=== PATIENT | male | born 1975 | race Caucasian/White ===

== ENCOUNTER → 2022-02-18 | Outpatient (CLI) | payer BC ==
--- NOTE | 2022-02-19 10:13 | US ---
EXAMINATION TYPE: US thyroid st tissue head/neck DATE OF EXAM: 02/18/2022 COMPARISON: NONE CLINICAL HISTORY: E03.9 HYPOTHYROIDISM, UNSPECIFIED. Abnormal lab work. GLAND SIZE: Right Lobe: 2.4 x 0.9 x 0.7 cm Overall Parenchyma: Homogeneous Left Lobe: 2.4 x 0.8 x 0.6 cm Overall Parenchyma: Homogeneous Isthmus Thickness: 0.22 cm NODULES RIGHT: # of nodules measured on right: 0 LEFT: # of nodules measured on left: 0 ISTHMUS: # of nodules measured in the isthmus: 0 Bilateral neck scanned, no evidence of lymphadenopathy. Thyroid gland is small in appearance. IMPRESSION: 1. Normal thyroid ultrasound.
== END | disposition home or self-care (01) ==
LOC: RADUSWWP 16:40
PROVIDERS: ATTEND Family Medicine
DX: E03.9 Hypothyroidism, unspecified (principal)
CPT/HCPCS: 76536